=== PATIENT | female | born 1995 | race Two or more races ===

== ENCOUNTER 2022-06-19 16:09 | Emergency (ER) | payer MEDICAID, OTHER ==
[~2022-06-19] VITALS: Ht 165.1 cm; Wt 85.0 kg
[2022-06-19 16:55] VITALS: BP 115/67
[2022-06-19] MEDS ORDERED: CIP03OS EACHEYE (17:02)
[2022-06-19] MEDS ORDERED: PROM1SOL4 PO (17:02)
== END 2022-06-19 17:22 | disposition home or self-care (01) ==
LOC: ER 16:12
DX: H10.33 Unspecified acute conjunctivitis, bilateral (principal); J06.9 Acute upper respiratory infection, unspecified; Z79.899 Other long term (current) drug therapy; Z88.0 Allergy status to penicillin

== ENCOUNTER 2022-07-01 17:11 | Emergency (ER) | payer MEDICAID ==
[~2022-07-01] VITALS: Ht 165.1 cm; Wt 83.1 kg
[~2022-07-01 17:11] MED LIST: CIP03OS EACHEYE; PROM1SOL4 PO
[2022-07-01 18:02] VITALS: BP 127/86
[2022-07-01] MEDS ORDERED: PRED20TA2 PO (18:09)
[2022-07-01] MEDS ORDERED: PROM1SOL4 PO (18:09)
[2022-07-01] MEDS ORDERED: AZIT500T66 PO (18:09)
[2022-07-01] MEDS ORDERED: IBUP600T27 PO (18:11)
[2022-07-01] MEDS ORDERED: IBUPROFEN 600 MG TAB PO ONE (18:15)
[2022-07-01] MEDS ORDERED: cefTRIAXone SOD 1,000 MG VL IM ONE (18:15)
== END 2022-07-01 18:38 | disposition home or self-care (01) ==
LOC: ER 17:15
DX: J01.00 Acute maxillary sinusitis, unspecified (principal); J02.9 Acute pharyngitis, unspecified
CPT/HCPCS: 96372; 99283; J0696

== ENCOUNTER 2022-08-05 20:07 | Emergency (ER) | payer MEDICAID ==
[~2022-08-05] VITALS: Ht 165.1 cm; Wt 190.0 kg
[~2022-08-05 20:07] MED LIST changes: +AZIT500T66 PO; +IBUP600T27 PO; +PRED20TA2 PO
[2022-08-05] MEDS ORDERED: ACETAMINOPHEN 500 MG TAB PO ONE (21:00)
[2022-08-06] MEDS ORDERED: ALBUAER3 IN (01:43)
[2022-08-06] MEDS ORDERED: PRED20TA2 PO (01:43)
[2022-08-06] MEDS ORDERED: AZIT250T9 PO (01:43)
[2022-08-06 02:15] VITALS: BP 112/72
== END 2022-08-06 02:16 | disposition home or self-care (01) ==
LOC: ER 20:07
DX: J06.9 Acute upper respiratory infection, unspecified (principal); Z79.1 Long term (current) use of non-steroidal anti-inflammatories (NSAID); Z79.2 Long term (current) use of antibiotics; Z79.899 Other long term (current) drug therapy; Z88.0 Allergy status to penicillin
CPT/HCPCS: 71045; 87804

== ENCOUNTER 2022-09-30 14:07 | Emergency (ER) | payer MEDICAID ==
[~2022-09-30] VITALS: Ht 165.1 cm; Wt 83.6 kg
[~2022-09-30 14:07] MED LIST changes: +ALBUAER3 IN; +AZIT250T9 PO
[2022-09-30 15:41] LABS: Basophils # (auto) 0.1 10 ^3/uL (0-0.2); Basophils % (auto) 0.8 % (0.0-2.0); Eosinophils # (auto) 0.1 10 ^3/uL (0-0.8); Eosinophils % (auto) 1.2 % (0.0-7.0); Lymphocytes # (auto) 2.5 10 ^3/uL (0.4-5.4); Mean Corpuscular Hemoglobin 33.2 pg (28.0-32.0); Mean Corpuscular Hgb Conc. 35.4 g/dL (32.0-36.0); Mean Corpuscular Volume 93.7 fL (80.0-100.0); Monocytes # (auto) 0.3 10 ^3/uL (0-1.3); Neutrophils # (auto) 4.2 10 ^3/uL (1.6-8.6); Nucleated Red Blood Cells % 0.1 %; Red Blood Cells 5.12 10^6/uL (4.0-5.20); Red Cell Distribution Width 12.9 % (11.8-14.3); White Blood Cell 7.1 10^3/uL (4.4-10.8)
[2022-09-30 16:21] LABS: Urine Bacteria NONE SEEN /hpf (None Seen); Urine Blood 3+ /uL (Negative); Urine Specific Gravity 1.032 (1.001-1.035); Urine WBC 3 /hpf (0 - 5)
[2022-09-30 16:29] LABS: Calcium 8.5 mg/dL (8.5-10.1)
[2022-09-30 16:33] LABS: BUN/Creatinine Ratio 16.7; Bilirubin, Total 0.8 mg/dL (0.2-1.0); Total Protein 7.2 g/dL (6.4-8.2)
[2022-09-30 19:17] VITALS: BP 127/72
== END 2022-09-30 19:18 | disposition home or self-care (01) ==
LOC: ER 14:07
DX: N93.8 Other specified abnormal uterine and vaginal bleeding (principal); Z88.0 Allergy status to penicillin
CPT/HCPCS: 36415; 76856; 80053; 81001; 84702; 85025

== ENCOUNTER 2023-01-20 18:11 | Emergency (ER) | payer MEDICAID ==
[~2023-01-20] VITALS: Ht 165.1 cm; Wt 84.2 kg
[2023-01-20 18:32] VITALS: BP 131/80
[2023-01-20] MEDS ORDERED: ACET-1158 PO (22:06)
[2023-01-20] MEDS ORDERED: PRED20TA2 PO (22:06)
[2023-01-20] MEDS ORDERED: AZIT250T9 PO (22:06)
== END 2023-01-20 22:17 | disposition home or self-care (01) ==
LOC: ER 18:11
DX: J06.9 Acute upper respiratory infection, unspecified (principal); E11.9 Type 2 diabetes mellitus without complications; Z20.822 Contact with and (suspected) exposure to COVID-19
CPT/HCPCS: 36415; 87426; 87804

== ENCOUNTER 2023-11-05 17:47 | Inpatient (IN) | payer MEDICAID ==
[~2023-11-05] VITALS: Ht 167.6 cm; Wt 81.1 kg
[~2023-11-05 17:47] MED LIST changes: +ACET500T58 PO; +AZIT-43 PO; -AZIT250T9 PO; +IBUP-1454 PO; -IBUP600T27 PO
[2023-11-05 18:55] LABS: Urine Bacteria NONE SEEN /hpf (None Seen); Urine Blood 2+ /uL (Negative); Urine Clarity HAZY (Clear); Urine Color Yellow (Yellow); Urine Protein, UAD 1+ (Negative); Urine Specific Gravity 1.035 (1.001-1.035); Urine Urobilinogen Normal (Negative); Urine WBC 304 /hpf (0 - 5); Urine WBC Clumps PRESENT /hpf (None Seen)
[2023-11-05 19:47] LABS: Basophils # (auto) 0.1 10 ^3/uL (0-0.2); Basophils % (auto) 0.4 % (0.0-2.0); Eosinophils # (auto) 0 10 ^3/uL (0-0.8); Eosinophils % (auto) 0.1 % (0.0-7.0); Hematocrit 51.8 % (36.0-46.0); Hemoglobin 17.6 g/dL (12.2-16.2); Lymphocytes # (auto) 2.1 10 ^3/uL (0.4-5.4); Lymphocytes % (auto) 11.7 % (10.0-50.0); Mean Corpuscular Volume 94.1 fL (80.0-100.0); Monocytes # (auto) 0.7 10 ^3/uL (0-1.3); Monocytes % (auto) 3.9 % (0.0-12.0); Neutrophils # (auto) 14.9 10 ^3/uL (1.6-8.6); Neutrophils % (auto) 83.9 % (37.0-80.0); Nucleated Red Blood Cells % 0.4 %; White Blood Cell 17.8 10^3/uL (4.4-10.8)
[2023-11-05 20:05] LABS: Alanine Aminotransferase 22 U/L (7-40); Albumin 4.9 g/dL (3.2-4.8); Alkaline Phosphatase 96 U/L (46-116); Anion Gap 7 (5-15); Aspartate Aminotransferase 25 U/L (13-40); BUN/Creatinine Ratio 12.9 (10.0-20.0); Blood Urea Nitrogen 11 mg/dL (9-23); Calcium 10.2 mg/dL (8.5-10.1); Carbon Dioxide 24 mmol/L (20-30); Chloride 103 mmol/L (98-107); Glucose 276 mg/dL (74-106); Potassium 5.2 mmol/L (3.5-5.1); Sodium 134 mmol/L (136-145)
[2023-11-05 20:06] LABS: Bilirubin, Total 1.5 mg/dL (0.2-1.0); Total Protein 7.7 g/dL (5.7-8.2)
[2023-11-05 20:12] LABS: Lipase 49 U/L (12-53)
[2023-11-05] MEDS: CEFTRIAXONE SODIUM 2 GM in D5W 5% 100 ML IV ONE (21:02)
[2023-11-05] MEDS: SODIUM CHLORIDE 0.9% 2,000 ML IV ONE (21:10)
[2023-11-05 22:46] LABS: Lactic Acid w/Reflex 3.1 mmol/L (0.4-2.0)
[2023-11-05] MEDS: levoFLOXacin 750MG 150 ML IV ONE (22:58)
[2023-11-05] MEDS ORDERED: DEXTROSE (50%) 50ML SYRG IV PRN (23:15)
[2023-11-05] MEDS ORDERED: NITROGLYCERIN 0.4 MG SL TAB SL PRN (23:15)
[2023-11-05] MEDS ORDERED: ONDANSETRON HCL 4 MG/2 ML VIAL IV PRN (23:15)
[2023-11-05] MEDS ORDERED: HYDROcodone-ACET 5/325MG TAB PO PRN (23:15)
[2023-11-05] MEDS ORDERED: MORPHINE SULFATE INJ 2 MG/ml SYRG IV PRN ×2 (23:15)
[2023-11-05] MEDS ORDERED: DOCUSATE SOD 100 MG CAP PO PRN (23:15)
[2023-11-05] MEDS ORDERED: ACETAMINOPHEN 325 MG TAB PO PRN (23:15)
[2023-11-05] MEDS: SODIUM CHLORIDE 0.9% 1,000 ML IV SCH (23:37)
[2023-11-06] MEDS: ACCU-CHEK COMFORT CURVE STRIP VI SCH (00:07)
[2023-11-06] MEDS: InsuLIN REG 1unit/0.01ml Soln (100units/ml) SC SCH (00:11)
[2023-11-06 06:52] LABS: Basophils # (auto) 0 10 ^3/uL (0-0.2); Basophils % (auto) 0.4 % (0.0-2.0); Eosinophils # (auto) 0.1 10 ^3/uL (0-0.8); Eosinophils % (auto) 0.7 % (0.0-7.0); Hematocrit 45.3 % (36.0-46.0); Hemoglobin 15.7 g/dL (12.2-16.2); Lymphocytes # (auto) 3.6 10 ^3/uL (0.4-5.4); Lymphocytes % (auto) 28.2 % (10.0-50.0); Mean Corpuscular Hemoglobin 32.7 pg (28.0-32.0); Mean Corpuscular Hgb Conc. 34.7 g/dL (32.0-36.0); Mean Corpuscular Volume 94.2 fL (80.0-100.0); Monocytes # (auto) 0.8 10 ^3/uL (0-1.3); Monocytes % (auto) 6.4 % (0.0-12.0); Neutrophils # (auto) 8.2 10 ^3/uL (1.6-8.6); Neutrophils % (auto) 64.3 % (37.0-80.0); Red Blood Cells 4.81 10^6/uL (4.0-5.20); Red Cell Distribution Width 12.9 % (11.8-14.3); White Blood Cell 12.8 10^3/uL (4.4-10.8)
[2023-11-06 06:54] LABS: Alanine Aminotransferase 14 U/L (7-40); Albumin 4.2 g/dL (3.2-4.8); Alkaline Phosphatase 73 U/L (46-116); Anion Gap 8 (5-15); Aspartate Aminotransferase 10 U/L (13-40); BUN/Creatinine Ratio 13.7 (10.0-20.0); Blood Urea Nitrogen 10 mg/dL (9-23); Calcium 8.6 mg/dL (8.7-10.4); Carbon Dioxide 22 mmol/L (20-30); Chloride 107 mmol/L (98-107); Glucose 159 mg/dL (74-106); Potassium 3.8 mmol/L (3.5-5.1); Sodium 137 mmol/L (136-145)
[2023-11-06 06:55] LABS: Bilirubin, Total 1.3 mg/dL (0.2-1.0); Total Protein 6.9 g/dL (5.7-8.2)
[2023-11-06 09:54] VITALS: PULSE 79; RESP 20; O2SAT 99
[2023-11-06] MEDS ORDERED: METF-371 PO (10:41)
[2023-11-06 13:00] VITALS: BP 101/68; PULSE 88; RESP 18; TEMP 97.9; O2SAT 98
[2023-11-06 16:47] VITALS: BP 107/68; PULSE 89; RESP 18; TEMP 97.9; O2SAT 97
[2023-11-06 20:00] VITALS: PULSE 81
[2023-11-06 22:00] VITALS: BP 104/66; PULSE 90; RESP 18; TEMP 97.4; O2SAT 94
[2023-11-06] MEDS: levoFLOXacin 500MG 100 ML IV SCH (22:15)
[2023-11-07 05:00] VITALS: BP 102/67; PULSE 81; RESP 18; TEMP 98.6; O2SAT 99
[2023-11-07 05:12] LABS: Anion Gap 8 (5-15); Carbon Dioxide 20 mmol/L (20-30); Chloride 110 mmol/L (98-107); Potassium 3.8 mmol/L (3.5-5.1); Sodium 138 mmol/L (136-145)
[2023-11-07 05:13] LABS: Basophils # (auto) 0.1 10 ^3/uL (0-0.2); Basophils % (auto) 0.7 % (0.0-2.0); Eosinophils # (auto) 0.1 10 ^3/uL (0-0.8); Eosinophils % (auto) 1.2 % (0.0-7.0); Hematocrit 42.7 % (36.0-46.0); Hemoglobin 14.8 g/dL (12.2-16.2); Lymphocytes # (auto) 3.9 10 ^3/uL (0.4-5.4); Lymphocytes % (auto) 40.3 % (10.0-50.0); Mean Corpuscular Hemoglobin 32.7 pg (28.0-32.0); Mean Corpuscular Hgb Conc. 34.6 g/dL (32.0-36.0); Mean Corpuscular Volume 94.6 fL (80.0-100.0); Monocytes # (auto) 0.5 10 ^3/uL (0-1.3); Monocytes % (auto) 4.9 % (0.0-12.0); Neutrophils # (auto) 5.2 10 ^3/uL (1.6-8.6); Neutrophils % (auto) 52.9 % (37.0-80.0); Nucleated Red Blood Cells % 0.1 %; Red Blood Cells 4.51 10^6/uL (4.0-5.20); Red Cell Distribution Width 12.8 % (11.8-14.3); White Blood Cell 9.7 10^3/uL (4.4-10.8)
[2023-11-07 05:14] LABS: Calcium 8.2 mg/dL (8.7-10.4)
[2023-11-07 05:18] LABS: Glucose 141 mg/dL (74-106)
[2023-11-07 05:19] LABS: BUN/Creatinine Ratio 14.1 (10.0-20.0); Blood Urea Nitrogen 9 mg/dL (9-23)
[2023-11-07 08:00] VITALS: PULSE 79
[2023-11-07 08:10] VITALS: PULSE 77; RESP 18; O2SAT 98
[2023-11-07 09:00] VITALS: BP 100/61; PULSE 77; RESP 18; TEMP 98.2; O2SAT 98
[2023-11-07] MEDS ORDERED: CIPR500T4 PO (11:24)
[2023-11-07 13:17] VITALS: BP 108/64; PULSE 74; RESP 18; TEMP 98.1; O2SAT 97
== END 2023-11-07 14:00 | disposition home or self-care (01) ==
LOC: ER 17:47 → TELE-CENTR 23:15 → TELE 23:20 → TELE-CENTR 11-06 09:53
PROVIDERS: ADMIT Nurse Practitioner Family; ATTEND Internal Medicine
DX: K80.20 Calculus of gallbladder without cholecystitis without obstruction (principal); N12 Tubulo-interstitial nephritis, not specified as acute or chronic; K76.0 Fatty (change of) liver, not elsewhere classified; K57.30 Diverticulosis of large intestine without perforation or abscess without bleeding; E11.65 Type 2 diabetes mellitus with hyperglycemia; E87.5 Hyperkalemia; Z88.0 Allergy status to penicillin
CPT/HCPCS: 36415; 74176; 80048; 80053; 81001; 81025; 82962; 83605; 83690; 84702; 85025; 87040; 87086; 87088; 87186; 93971; 96361; 96365; G0378; J0696; J1815; J1956; J7060

== ENCOUNTER 2024-02-03 17:53 | Emergency (ER) | payer MEDICAID ==
[~2024-02-03] VITALS: Ht 165.1 cm; Wt 79.8 kg
[~2024-02-03 17:53] MED LIST changes: -ACET500T58 PO; -ALBUAER3 IN; -AZIT-43 PO; -AZIT500T66 PO; -CIP03OS EACHEYE; +CIPR500T4 PO; -IBUP-1454 PO; +METF-371 PO; -PRED20TA2 PO; -PROM1SOL4 PO
[2024-02-03 18:38] LABS: Urine Bacteria None Seen /hpf (None Seen)
[2024-02-03 18:50] LABS: Urine Blood Negative /uL (Negative); Urine Clarity Clear (Clear); Urine Color Light-Yellow (Yellow); Urine Protein, UAD Negative (Negative); Urine Specific Gravity 1.035 (1.001-1.035); Urine Urobilinogen Normal (Negative); Urine WBC 21 /hpf (0 - 5)
[2024-02-03] MEDS ORDERED: ACET500T58 PO (19:16)
[2024-02-03] MEDS ORDERED: IBUP-1455 PO (19:16)
[2024-02-03] MEDS ORDERED: ZOFR4T PO (19:16)
[2024-02-03] MEDS ORDERED: CIPR-173 PO (19:16)
[2024-02-03] MEDS: CIPROFLOXACIN HCL 500 MG TAB PO ONE (19:25)
[2024-02-03 19:31] VITALS: BP 128/86; PULSE 100; RESP 18; TEMP 97.5; O2SAT 98
== END 2024-02-03 19:33 | disposition home or self-care (01) ==
LOC: ER 17:53
DX: N12 Tubulo-interstitial nephritis, not specified as acute or chronic (principal); E11.9 Type 2 diabetes mellitus without complications; Z88.0 Allergy status to penicillin
CPT/HCPCS: 81001

== ENCOUNTER 2024-05-20 23:46 | Emergency (ER) | payer MEDICAID ==
[~2024-05-20] VITALS: Ht 165.1 cm; Wt 80.7 kg
[~2024-05-20 23:46] MED LIST changes: +ACET500T58 PO; +CIPR-173 PO; +IBUP-1455 PO; +ZOFR4T PO
[2024-05-21 00:38] LABS: Basophils # (auto) 0.1 10 ^3/uL (0-0.2); Basophils % (auto) 0.9 % (0.0-2.0); Eosinophils # (auto) 0.1 10 ^3/uL (0-0.8); Eosinophils % (auto) 1.2 % (0.0-7.0); Hematocrit 48.6 % (36.0-46.0); Hemoglobin 16.9 g/dL (12.2-16.2); Lymphocytes # (auto) 2.8 10 ^3/uL (0.4-5.4); Lymphocytes % (auto) 29.7 % (10.0-50.0); Mean Corpuscular Hemoglobin 33.6 pg (28.0-32.0); Mean Corpuscular Hgb Conc. 34.8 g/dL (32.0-36.0); Mean Corpuscular Volume 96.5 fL (80.0-100.0); Monocytes # (auto) 0.5 10 ^3/uL (0-1.3); Monocytes % (auto) 4.9 % (0.0-12.0); Neutrophils # (auto) 5.9 10 ^3/uL (1.6-8.6); Neutrophils % (auto) 63.3 % (37.0-80.0); Nucleated Red Blood Cells % 0.1 %; Platelet Count (auto) 196 10^3/uL (140-450); Red Blood Cells 5.03 10^6/uL (4.0-5.20); Red Cell Distribution Width 12.5 % (11.8-14.3); White Blood Cell 9.4 10^3/uL (4.4-10.8)
[2024-05-21 00:58] LABS: Alanine Aminotransferase 19 U/L (7-40); Albumin 4.4 g/dL (3.2-4.8); Alkaline Phosphatase 106 U/L (46-116); Anion Gap 6 (5-15); Aspartate Aminotransferase 15 U/L (13-40); BUN/Creatinine Ratio 11.1 (10.0-20.0); Bilirubin, Total 0.8 mg/dL (0.2-1.0); Blood Urea Nitrogen 10 mg/dL (9-23); Calcium 9.2 mg/dL (8.7-10.4); Carbon Dioxide 25 mmol/L (20-30); Chloride 107 mmol/L (98-107); Glucose 338 mg/dL (74-106); Lipase 55 U/L (12-53); Potassium 4.1 mmol/L (3.5-5.1); Sodium 138 mmol/L (136-145)
[2024-05-21 00:59] LABS: Total Protein 7.3 g/dL (5.7-8.2)
[2024-05-21 02:20] VITALS: BP 125/79; PULSE 74; RESP 16; TEMP 98.1; O2SAT 98
== END 2024-05-21 02:24 | disposition home or self-care (01) ==
LOC: ER 23:46
DX: K80.20 Calculus of gallbladder without cholecystitis without obstruction (principal); K76.0 Fatty (change of) liver, not elsewhere classified; E11.9 Type 2 diabetes mellitus without complications; Z88.0 Allergy status to penicillin
CPT/HCPCS: 36415; 76705; 80053; 83690; 84484; 85025

== ENCOUNTER 2024-07-09 17:28 | Emergency (ER) | payer MEDICAID ==
[~2024-07-09] VITALS: Ht 165.1 cm; Wt 81.9 kg
[2024-07-09 18:06] LABS: Urine Bacteria None Seen /hpf (None Seen)
[2024-07-09 18:19] LABS: Urine Blood 1+ /uL (Negative); Urine Clarity Turbid (Clear); Urine Color Colorless (Yellow); Urine Protein, UAD TRACE (Negative); Urine Specific Gravity 1.042 (1.001-1.035); Urine Urobilinogen Normal (Negative); Urine WBC 319 /hpf (0 - 5); Urine pH 6.5 (5.0-9.0)
[2024-07-09] MEDS ORDERED: BACDST PO (18:38)
[2024-07-09 18:46] VITALS: BP 117/75; PULSE 100; RESP 16; TEMP 97.8; O2SAT 98
[2024-07-09] MEDS: cefTRIAXone SOD 1,000 MG VL IM ONE (18:49)
[2024-07-09] MEDS ORDERED: LIDOCAINE 1% HCL (LOCAL ANESTH.) INJ 20ML MDV ID ONE (19:00)
== END 2024-07-09 18:38 | disposition home or self-care (01) ==
LOC: ER 17:28
DX: N39.0 Urinary tract infection, site not specified (principal); E11.9 Type 2 diabetes mellitus without complications; Z79.84 Long term (current) use of oral hypoglycemic drugs; Z79.899 Other long term (current) drug therapy; Z87.440 Personal history of urinary (tract) infections; Z88.0 Allergy status to penicillin
CPT/HCPCS: 81001; 87086; 96372; 99283; J0696